=== PATIENT | female | born 1955 | race Caucasian/White ===

== ENCOUNTER 2017-01-01 17:53 | Emergency (ER) | payer OTHER ==
[2017-01-01 18:13] VITALS: PULSE 88; RESP 16
[2017-01-01 18:48] LABS: % IMMATURE GRANULYOCYTES 0.2 % (0.0-1.1); ABSOLUTE IMMATURE GRANULOCYTES 0.02 10^3/uL (0.00-0.10); ADD DIFF? NO; ADD MORPH? NO; ADD SCAN? NO; ATYPICAL LYMPHOCYTE FLAG 10 (0-99); FRAGMENT RBC FLAG 0 (0-99); HEMATOCRIT 45.7 % (38.0-47.0); HEMOGLOBIN 15.2 g/dL (12.6-16.3); LEFT SHIFT FLG 0 (0-99); LIPEMIA HEMOLYSIS FLAG 80 (0-99); MEAN CELL HEMOGLOBIN 31.8 pg (27.9-34.1); MEAN CELL HEMOGLOBIN CONCENTR. 33.3 g/dL (32.4-36.7); MEAN CELL VOLUME 95.6 fL (81.5-99.8); MEAN PLATELET VOLUME 10.7 fL (8.7-11.7); PLATELET CLUMPS FLAG 0 (0-99); PLATELET COUNT 238 10^3/uL (150-400); RED BLOOD CELL COUNT 4.78 10^6/uL (4.18-5.33); RED CELL DISTRIBUTION WIDTH 12.7 % (11.5-15.2)
[2017-01-01 19:02] LABS: INR 0.99 (0.83-1.16); PROTIME(PATIENT) 12.8 SEC (12.0-15.0)
[2017-01-01 19:03] LABS: APTT 30.1 SEC (23.0-38.0)
[2017-01-01 19:22] VITALS: BP 150/100; O2SAT 94
--- NOTE | 2017-01-01 19:47 | EDPHY ---
H & P Time Seen by Provider: 01/01/17 18:13 HPI/ROS: 61-year-old female with a history of Sjogren's syndrome, environmental asthma, severe scoliosis presents complaining of cough for approximately 3 months duration. She denies sputum she denies fevers or chills. She denies leg pain or leg swelling calf swelling. Review of systems As per HPI General no fever no chills no weakness HEENT no eye pain no eye discharge. No eye redness, no sore throat Respiratory positive cough, no shortness of breath Cardiac no chest pain, no peripheral edema GI no abdominal pain, no diarrhea, no constipation, no nausea, no vomiting no flank pain, no hematuria, no dysuria Musculoskeletal no myalgias, no joint pain Heme no easy bruising, no easy bleeding Endo no polyuria, no polydipsia Skin no rashes, no pruritus Neuro no syncope, no dizziness, no headaches Psych is no suicidal ideation, no homicidal ideation Past Medical/Surgical History: Sjogren's Environmental asthma Social History: Denies alcohol or drug use Smoking Status: Never smoked Physical Exam: 61-year-old female alert and oriented no acute distress nontoxic appearance afebrile HEENT atraumatic normocephalic, extraocular muscles intact, anicteric Oropharynx negative for erythema negative exudate, tolerating her own secretions Neck supple no meningismus Lungs clear to auscultation bilaterally Heart regular rate and rhythm without murmur rub or gallop Abdomen nondistended normoactive bowel sounds soft nontender Back no CVA tenderness, no step-offs, no spinal tenderness, scoliosis Extremities no cyanosis clubbing or edema Neuro alert and oriented, no focal deficits Constitutional: Initial Vital Signs Temperature (C) 36.6 C 01/01/17 18:08 Heart Rate 88 01/01/17 18:08 Respiratory Rate 16 01/01/17 18:08 Blood Pressure 128/97 H 01/01/17 18:08 O2 Sat (%) 99 01/01/17 18:08 O2 Delivery Mode Room Air Allergies/Adverse Reactions: chlorhexidine Allergy (Verified 01/01/17 18:06) hydrocortisone Allergy (Verified 01/01/17 18:05) isopropyl alcohol Allergy (Verified 01/01/17 18:06) levofloxacin Allergy (Verified 01/01/17 18:06) Home Medications: Medication Instructions Recorded Advair 100/50 (*) 01/01/17 Albuterol Sulfate 01/01/17 Estrace 01/01/17 Medical Decision Making - Diagnostics Imaging Results: Imaging Impressions Chest X-Ray 01/01/17 18:41 Impression: Clear lungs. No pneumonia, effusion, or pulmonary nodule. ED Course/Re-evaluation: Patient seen and evaluated for cough of 3 months duration. Differential diagnosis considered Bronchitis, pneumonia, pulmonary embolus, pleural effusions, cough variant asthma Chest x-ray Negative for pneumonia negative for effusions Notable scoliosis Labs CBC, BMP, BNP, D-dimer normal Impression Cough Plan Continue albuterol Advair Offered patient prednisone taper, currently refuses as she states she had a bad experience with it when taking for her Sjogren's in the past. Advised follow-up with primary care physician prior to travel. - Data Points Laboratory Results: Laboratory Results 01/01/17 18:40 01/01/17 18:40 01/01/17 01/01/17 01/01/17 18:52 18:40 18:40 WBC RBC Hgb POC Hgb 16.7 gm/dL H gm/dL (12.6-16.3) Hct POC Hct 49 % H % (38-47) MCV MCH MCHC RDW Plt Count MPV Neut % (Auto) Lymph % (Auto) Ballard % (Auto) Eos % (Auto) Baso % (Auto) Nucleat RBC Rel Count Absolute Neuts (auto) Absolute Lymphs (auto) Absolute Monos (auto) Absolute Eos (auto) Absolute Basos (auto) Absolute Nucleated RBC Immature Gran % Immature Gran # PT 12.8 SEC SEC (12.0-15.0) INR 0.99 (0.83-1.16) APTT 30.1 SEC SEC (23.0-38.0) D-Dimer 0.40 ug/mLFEU ug/mLFEU (0.00-0.50) POC Sodium 140 mEq/L mEq/L (134-144) Sodium 141 mEq/L mEq/L (134-144) POC Potassium 3.9 mEq/L mEq/L (3.3-5.0) Potassium 4.1 mEq/L mEq/L (3.5-5.2) POC Chloride 103 mEq/L mEq/L (97-110) Chloride 108 mEq/L mEq/L (97-110) Carbon Dioxide 18 mEq/l L mEq/l (22-31) Anion Gap 15 mEq/L mEq/L (8-16) POC BUN 21 mg/dL mg/dL (7-23) BUN 20 mg/dL mg/dL (7-23) Creatinine 0.7 mg/dL mg/dL (0.6-1.0) POC Creatinine 0.7 mg/dL mg/dL (0.6-1.0) Estimated GFR > 60 Glucose 86 mg/dL mg/dL (70-100) POC Glucose 90 mg/dL mg/dL (70-100) Calcium 10.2 mg/dL mg/dL (8.5-10.4) NT-Pro-B Natriuret Pep 105 pg/mL pg/mL (0-125) 01/01/17 18:40 WBC 8.03 10^3/uL 10^3/uL (3.80-9.50) RBC 4.78 10^6/uL 10^6/uL (4.18-5.33) Hgb 15.2 g/dL g/dL (12.6-16.3) POC Hgb Hct 45.7 % % (38.0-47.0) POC Hct MCV 95.6 fL fL (81.5-99.8) MCH 31.8 pg pg (27.9-34.1) MCHC 33.3 g/dL g/dL (32.4-36.7) RDW 12.7 % % (11.5-15.2) Plt Count 238 10^3/uL 10^3/uL (150-400) MPV 10.7 fL fL (8.7-11.7) Neut % (Auto) 53.4 % % (39.3-74.2) Lymph % (Auto) 33.5 % % (15.0-45.0) Ballard % (Auto) 9.8 % % (4.5-13.0) Eos % (Auto) 2.4 % % (0.6-7.6) Baso % (Auto) 0.7 % % (0.3-1.7) Nucleat RBC Rel Count 0.0 % % (0.0-0.2) Absolute Neuts (auto) 4.28 10^3/uL 10^3/uL (1.70-6.50) Absolute Lymphs (auto) 2.69 10^3/uL 10^3/uL (1.00-3.00) Absolute Monos (auto) 0.79 10^3/uL 10^3/uL (0.30-0.80) Absolute Eos (auto) 0.19 10^3/uL 10^3/uL (0.03-0.40) Absolute Basos (auto) 0.06 10^3/uL 10^3/uL (0.02-0.10) Absolute Nucleated RBC 0.00 10^3/uL 10^3/uL (0-0.01) Immature Gran % 0.2 % % (0.0-1.1) Immature Gran # 0.02 10^3/uL 10^3/uL (0.00-0.10) PT INR APTT D-Dimer POC Sodium Sodium POC Potassium Potassium POC Chloride Chloride Carbon Dioxide Anion Gap POC BUN BUN Creatinine POC Creatinine Estimated GFR Glucose POC Glucose Calcium NT-Pro-B Natriuret Pep Point of Care Test Results: 01/01/17 18:52 POC Sodium 140 POC Potassium 3.9 POC Chloride 103 POC BUN 21 POC Creatinine 0.7 POC Glucose 90 Departure - Departure Disposition: Home, Routine, Self-Care Clinical Impression: Cough Condition: Good Instructions: Chronic Cough (ED) Additional Instructions: Follow up with your primary care physician. Referrals: MIKE MARTI MD [Other] - As per Instructions
[2017-01-01 20:08] VITALS: TEMP 97.7
[2017-01-01 20:29] LABS: ANION GAP 15 mEq/L (8-16); CALCIUM 10.2 mg/dL (8.5-10.4); CARBON DIOXIDE 18 mEq/l (22-31); CHLORIDE 108 mEq/L (97-110); CREATININE 0.7 mg/dL (0.6-1.0); GLOMERULAR FILTRATION RATE > 60; GLUCOSE 86 mg/dL (70-100); POTASSIUM 4.1 mEq/L (3.5-5.2); SODIUM 141 mEq/L (134-144)
== END 2017-01-01 20:05 | disposition home or self-care (01) ==
LOC: CED 17:53
DX: R05 Cough (principal); J45.909 Unspecified asthma, uncomplicated
CPT/HCPCS: 71020-PO; 80048-PO; 82947-QW; 83880-PO; 85025-PO; 85378-PO; 85610-PO; 85730-PO